=== PATIENT | female | born 1950 ===

== ENCOUNTER 2016-09-02 06:10 | Day surgery (SDC) | payer BC, OTHER ==
[2016-09-01 11:35] VITALS: BMI 24.0
[2016-09-02] MEDS ORDERED: Lactated Ringer's 1,000 ML IV ONE ×2 (07:10→10:30)
[2016-09-02] MEDS ORDERED: Bupivacaine 0.5% Inj(30mL) ONE (08:24)
[2016-09-02] MEDS ORDERED: Bacitracin Ointment 30 GM TUBE ONE (08:24)
[2016-09-02] MEDS ORDERED: MethylPREDNISolone Depo 40 mg/ml Inj ONE (08:24)
[2016-09-02] MEDS ORDERED: Lidocaine 1% Inj (20ml) ONE ×2 (08:24→14:36)
[2016-09-02] MEDS ORDERED: Rocuronium 10 mg/ml (5 ml) ONE (08:53)
[2016-09-02] MEDS ORDERED: Propofol 10 mg/ml Inj (20 ML) ONE (08:53)
[2016-09-02] MEDS ORDERED: Succinylcholine 200 mg/10 ml Inj IV ONE (08:54)
[2016-09-02] MEDS ORDERED: ePHEDrine 50 mg/ml Inj ONE (08:56)
[2016-09-02] MEDS ORDERED: Neostigmine Methylsulfate 2 MG/2 ML ML IV ONE (10:00)
[2016-09-02] MEDS ORDERED: HYDROmorphone 0.5 mg/0.5 ml ISec ONE ×3 (11:12→11:45)
[2016-09-02] MEDS ORDERED: HYDROmorphone 0.5 mg/0.5 ml ISec IVP PRN (11:19)
[2016-09-02] MEDS: HYDROmorphone 0.5 mg/0.5 ml ISec IVP PRN ×3 (11:37→12:45)
--- NOTE | 2016-09-02 13:53 | RAD ---
PROCEDURE: Left Wrist Radiographs. HISTORY: s/p orif left distal radius COMPARISON: None. FINDINGS: BONES: Status post ORIF distal radius. No preoperative films. The nature of the distal radial fracture is not fully evident from this examination alone. Gross anatomic alignment has been achieved. There is a pin traversing the distal radial ulnar articulation. JOINTS: Normal. No dislocation. SOFT TISSUES: Normal. OTHER FINDINGS: None. IMPRESSION: ORIF distal radial fracture.
[2016-09-02] MEDS ORDERED: Ropivacaine 0.5% 30ML IV ONE (14:36)
--- NOTE | 2016-09-02 15:26 | PCM.SURG1 ---
Surgeon's Initial Post Op Note - Surgeon's Notes Surgeon: Polly Lawn Mower Sharpener: YESI Kong Type of Anesthesia: General Endo Anesthesia Administered By: Dr grimes Pre-Operative Diagnosis: Dispalced/intrarticular distal radius fx/radioulnar dislocation/ carpal tunnel syndrome L wrist ( post traumatic0 Operative Findings: displaced intraarticular distal radius fx. radioulnar dislocation. post traumatic compression median nerve Left Post-Operative Diagnosis: as above. flexor tenosynovitis Operation Performed: ORIF intraarticular comminuted distal radius fx. ORIF radioulnar dislocation. release carpal tunnel. partial flexor tenosynovectomy. partial mediuan neurolysis. applx short arm splint Specimen/Specimens Removed: callous/bone/tenosynovium. epineurium Estimated Blood Loss: EBL {In ML}: 10 Blood Products Given: N/A Drains Used: No Drains Post-Op Condition: Good Date of Surgery/Procedure: 09/02/16 Time of Surgery/Procedure: 09:50 (time in room/anaesthesia indcution time 901)
--- NOTE | 2016-09-02 15:34 | PCM.ANESB4 ---
Infraclavicular Block - Femoral Nerve Block Date of Procedure: 09/02/16 Procedure Performed: Brachial Plexus at the Infraclavicular area Left - Procedure Infraclavicular Block: The procedure was explained to the patient that it is for the post-operative pain management. Consent was obtained after a thorough discussion with the patient regarding the benefits and possible complications of local anesthetic block of the brachial plexus at the infraclavicular area. T Time-out was held with the PACU nurse to confirm the correct surgery and the appropriate block. After applying oxygen by nasal cannula patient's head was gently rotated away from the operative ____left____ shoulder and the area medial to the coracoid process and inferior to the clavicle was carefully palpated. The ultrasound transducer was then applied to the skin in the transverse plane and the brachial plexus was visualized surrounding the axillary artery and deep to the pectoralis major and minor muscles. After thorough identification, this area was prepped with chloroprep and 2 % Lidocaine was injected subcutaneously for topical anesthesia. At this point, a #21 gauge Stimuplex 4-inch needle was inserted cephalad to the ultrasound transducer and inferior to the clavicle in-plane towards the posterior aspect of the axillary artery. Needle advancement was performed carefully under ultrasound visualization. After repeated negative aspiration, _ __3__cc of ___2__% Lidocaine was injected and this was followed with ___20___ cc of ___0.5____ % Ropivacaine . Under ultrasound guidance the local anesthetics were observed surrounding the cords of the brachial plexus. The needle was removed intact and sterile dressing was applied. The patient had stable vital signs, was conscious and in no apparent distress. The patient tolerated the infraclavicular block of the brachial plexus well with stable vital signs.
[2016-09-02 15:36] VITALS: RESP 18
--- NOTE | 2016-09-02 16:19 | RAD ---
PROCEDURE: Fluoroscopy over 1 hour. HISTORY: LEFT WRIST COMPARISON: None TECHNIQUE: Submitted images from the current procedure: 4.0. FINDINGS: Total fluoroscopic time (continuous mode) utilized during the procedure: 10.9 seconds. IMPRESSION: Fluoroscopic assistance provided for open reduction internal fixation distal radial fracture.
[2016-09-02 18:24] VITALS: BP 112/58; PULSE 77; TEMP 98.5; O2SAT 100
--- NOTE | 2016-09-03 06:57 | OP ---
PROCEDURE DATE: 09/02/2016 PREOPERATIVE DIAGNOSES: 1. Comminuted intraarticular fracture of the distal radius. 2. Radial ulnar dislocation. 3. Posttraumatic carpal tunnel syndrome, median nerve compression. POSTOPERATIVE DIAGNOSES: 1. Comminuted intraarticular distal radius fracture with volar lip fragment. 2. Open reduction internal fixation of the radioulnar dislocation. 3. Released transverse carpal ligament. 4. Partial median neurolysis. 5. Partial flexor tenosynovectomy. 6. Application of volar splint. 7. Positioning of fluoroscope, interpretation of video images. SURGEON: Eamon Matias MD WRIST LINER: Terri Valenzuela, Certified Registered Nursing Lockstitch Pocket Setter. ANESTHESIA: General endotracheal anesthesia, Dr. Zheng. COMPLICATIONS: No complications. DRAINS: No drains. OPERATIVE INDICATION: The patient is a 66-year-old woman who presents after a fall on an outstretche d extremity, presenting with a comminuted intraarticular distal radius fracture, radioulnar dislocati on. The pros, cons, risks and benefits of surgical approach were discussed. The possibility of mech anical failure, infection, thromboembolic disease, secondary or tertiary surgery is discussed. The p atient can no longer stand the discomfort. Informed consent is obtained in the presence of a [facility] competent bulb grader in the presence of her and daughter. Alternative procedures and mod alities of treatment were discussed, including benign neglect, casting, and pin fixation. The treatm ent course chosen is judged to be the most effective in terms of stability and early range of motion. The pros, cons, risks, and benefits of surgical approach were discussed. The possibility of mechan ical failure, infection, thromboembolic disease, secondary or tertiary surgery is discussed. The lef t upper extremity is the involved upper extremity. After having obtained informed consent, after hav ing identified side, site, and procedure and a critical pause/timeout, after the satisfactory inducti on of the anesthetic, the patient identified as the patient, in the supine position with all bony pro minences well padded, the left upper extremity is prepped and free draped in the usual fashion for up per extremity surgery. The tourniquet had been applied, but is not inflated. After exsanguinating t he limb using 6-inch Esmarch bandage, the tourniquet, which had been applied, is inflated to 250 mmHg . The operation is performed under eyeglass magnification. This having been accomplished, the incisi on, as described in the median palmar crease, deviating distally at the distal crease, deviating back proximally to the proximal crease, and in the interval between the palmaris longus and flexor carpi radialis. The skin incision is carried down through the skin and subcutaneous tissue. The operation was performed under 2.5 magnifying eyeglasses. The flap was elevated. The entire extent of the tra nsverse carpal ligament was identified. The transverse carpal ligament is divided. Again, the inter ever between the flexor carpi radialis and the palmaris longus is developed and the palmar aponeurosis is divided. The entire extent of the transverse carpal ligament is divided. There is compression o f the underlying median nerve. The wound is thoroughly irrigated. The tendons were reflected using the Ta retractors. The entire extent of the transverse carpal ligament is released. There i s found to be evidence of compression in the median nerve with evidence of florid tenosynovitis. A p artial flexion tenosynovectomy is accomplished, as well as a median epineurolysis. This having been accomplished, the fracture site is identified, is curetted with healing callus. The fracture was red uced with some traction, flexion, and some ulnar deviation. At this point in time, the radius plate is applied to the volar aspect of the wrist. Each sequential drill hole is drilled, sounded, a nd the appropriate sized screws are placed in the locking mode. Verification of position is offered on AP and lateral image intensification views. This having been accomplished, it is found to be acce ptable position of the plate and fixation of the radius fracture. There is found to be evidence of i nstability of the ulna, status post ulnar dislocation, and the injury. The ulna is reduced and held with a transfixing K-wire. The camera was placed in the ulnar aspect through the radial fragment. T his having been accomplished, verification is offered on AP and lateral image intensification views. The wrist capsule was repaired with FiberWire suture, nonabsorbable, and closure is in layers with i nterrupted Vicryl and cecelia and nylon, Wan Campa compression dressing, and volar splint is appli ed. Eamon Matias MD cc: [id number] TT: 09/02/2016 23:40:28 dn
--- NOTE | 2016-09-03 07:27 | CARD ---
APPROVED REPORT EKG Measurement Heart [id number] <Conclusion> Normal sinus rhythm Normal ECG
== END 2016-09-02 18:43 | disposition home or self-care (01) ==
LOC: H.OPSURG 06:10
PROVIDERS: ATTEND Orthopaedic Surgery
DX: S52.321A Displaced transverse fracture of shaft of right radius, initial encounter for closed fracture (principal); W19.XXXA Unspecified fall, initial encounter; G56.00 Carpal tunnel syndrome, unspecified upper limb; S63.075A Dislocation of distal end of left ulna, initial encounter
CPT/HCPCS: 25115; 25608; 64721; 73100; 88304; 88307; 93005; C1713; J0330; J1170; J2001; J2405; J2704; J2710; J3010; J7030; J7120

== ENCOUNTER 2017-06-20 06:03 | Day surgery (SDC) | payer BC ==
[2017-06-20 06:14] VITALS: BMI 26.6
[2017-06-20 06:33] VITALS: RESP 20
[2017-06-20] MEDS ORDERED: Lactated Ringer's 1,000 ML IV ONE ×2 (06:54→10:05)
[2017-06-20] MEDS ORDERED: Propofol 10 mg/ml Inj (20 ML) ONE (07:30)
[2017-06-20] MEDS ORDERED: Lidocaine 1% 5ml Abboject IV ONE (07:30)
[2017-06-20] MEDS ORDERED: Midazolam 2 MG/2 ML VIAL ONE (07:30)
--- NOTE | 2017-06-20 07:37 | CP.SDSHP ---
Same Day Surgery H & P - History Proposed Procedure: Left wrist hardware removal Pre-Op Diagnosis: L wrist distal radius fracture, radio-ulnar dislocation s/p ORIF - Previous Medical/Surgical History Pain: 2.Mild Pain Previous Surgical History: L wrist ORF, uterus prolapse - Allergies Allergies: Allergies Penicillins Allergy (Verified 09/01/16 11:35) RASH aspirin Adverse Reaction (Verified 09/01/16 11:35) RASH - Current Medications Current Medications: None - Physical Exam General Appearance: No acute distress Vital Signs: Vital Signs 06/20/17 06/20/17 06:31 06:34 Temperature 98.1 F Pulse Rate 80 80 Respiratory 20 Rate Blood Pressure 149/76 O2 Sat by Pulse 100 Oximetry Mental Status: Alert & Oriented x3 Neuro: WNL Heart: WNL Lungs: WNL GI: WNL - {Optional Preform as Required} Abdomen: WNL Integument: WNL Ortho: Other (L wrist: old surgical incision well healed, no tenderness, gross NVI distally, FROM) ENT: WNL - Impression Impression: Patient is a 67 y/o female who presents for removal of L wrist hardware. Pt. Evaluated Today:Candidate for Anesthesia & Procedure: Yes (Risks/kallie explained to pt in detailand she agrees to proceed) - Date & Time Date: 06/20/17 Time: 07:43 Short Stay Discharge - Short Stay Discharge Admitting Diagnosis/Reason for Visit: M71.032 Disposition: HOME/ ROUTINE Referrals: Eamon Matias III, MD [Primary Care Provider] -
[2017-06-20] MEDS ORDERED: ceFAZolin IV 2 gm in Dextrose 0 GM/0 ML BAG IVPB ONE (07:43)
[2017-06-20] MEDS ORDERED: MethylPREDNISolone Depo 40 mg/ml Inj ONE (07:43)
[2017-06-20] MEDS ORDERED: Bupivacaine 0.5% Inj(30mL) ONE (07:43)
[2017-06-20] MEDS ORDERED: Bacitracin Ointment 30 GM TUBE ONE (07:44)
[2017-06-20] MEDS ORDERED: Clindamycin 600mg/50ml NS 600 MG/50 ML BAG IVPB ONE (07:45)
[2017-06-20] MEDS ORDERED: Lidocaine 4% (Laryng-O-Jet) Kit MM ONE (07:48)
[2017-06-20] MEDS ORDERED: Succinylcholine 200 mg/10 ml Inj IV ONE (07:48)
[2017-06-20] MEDS ORDERED: Phenylephrine 10 mg/ml Inj ONE (08:08)
[2017-06-20] MEDS ORDERED: Morphine 4 MG/ML VIAL IVP PRN (09:09)
[2017-06-20] MEDS ORDERED: Lactated Ringer's 1,000 ML IV SCH (09:15)
[2017-06-20] MEDS ORDERED: Oxycodone/Acetaminophen 5/325 mg Tab PO PRN (09:37)
[2017-06-20 10:33] VITALS: BP 127/82; PULSE 81; TEMP 98.3; O2SAT 100
--- NOTE | 2017-06-20 10:52 | RAD ---
PROCEDURE: Left Wrist Radiographs. HISTORY: S/P removal of hardware COMPARISON: Left wrist radiographs 09/02/2016. FINDINGS: BONES: Is again seen the status post ORIF with compression plate and screws reducing a fracture of the distal left radius once again. The fracture is not identified suggesting late stage of healing or healed fracture. Prior orthopedic pin is been removed transfixing the radius and ulna with a nonspecific lucency identified at the radial side of the distal left ulna. Skin cecelia are identified medial to the ulna. JOINTS: Normal. No dislocation. SOFT TISSUES: Normal. OTHER FINDINGS: None. IMPRESSION: Status post removal of orthopedic pin transfixing the distal radius and ulna with radial compression plate and screws unchanged in position. Bony lucency is seen at the site of the location of the pin at the level of the lateral ulna. Radial compression plate unchanged in position and appearance.
--- NOTE | 2017-06-20 14:04 | PCM.SURG1 ---
Surgeon's Initial Post Op Note - Surgeon's Notes Surgeon: Polly Drop Wire Aliner: YESI Peck Type of Anesthesia: General Endo Anesthesia Administered By: Dr Gutierrez Pre-Operative Diagnosis: painful hardware (deep) R distal ulne. cyst distal ulna. s/p[ healed distal radius fx ( s/p radioulnar subluxation s. Operative Findings: as above Post-Operative Diagnosis: as above Operation Performed: Excision cyst distal ulna. Removal hardware deep. manipulation of R wrist. posiitoning of fluor/ibnterpretation of video images. intrarticular injection Specimen/Specimens Removed: ganglion cyst distal ulna. fixation duistal radioulnar joint Estimated Blood Loss: EBL {In ML}: 5 Blood Products Given: N/A Drains Used: No Drains Post-Op Condition: Good Date of Surgery/Procedure: 06/20/17 Time of Surgery/Procedure: 08:35 (time in room/anaesthesia indcution time- 7:45)
--- NOTE | 2017-06-22 19:52 | OP ---
PROCEDURE DATE: 06/20/2017 PREOPERATIVE DIAGNOSES 1. Painful hardware, deep (right distal ulna). 2. Soft tissues cyst/bursa superficial to the lateral aspect of the distal ulna. 3. Status post healed distal radius fracture (distal radius fracture and radial ulnar subluxation). POSTOPERATIVE DIAGNOSES: 1. Painful hardware, deep (right distal ulna). 2. Soft tissues cyst/bursa superficial to the lateral aspect of the distal ulna. 3. Status post healed distal radius fracture (distal radius fracture and radial ulnar subluxation). OPERATIVE FINDINGS: As above. Healed distal radial fracture with improved radial ulnar subluxation. OPERATION PERFORMED 1. Excision cyst distal ulna. 2. Removal hardware, deep. 3. Manipulation of the wrist under fluoroscopy. 4. Positioning of fluoroscope, interpretation of video images. 5. Intra-articular injection. SPECIMENS REMOVED 1. Ganglion cyst, distal ulna. 2. Transfixing pins, distal radius ulna. BLOOD LOSS: 5 mL. BLOOD PRODUCTS: None. DRAINS: None. POSTOPERATIVE CONDITION: Stable. TIME OF SURGERY: Incision time 08:35, time in the room 07:45. OPERATIVE INDICATIONS: Solange Singer is a 67-year-old woman who had sustained a distal radial fracture and subluxation of the distal radial ulnar joint. The patient underwent open reduction and internal fixation with transfixion the joint with a K-wire. The K-wire has migrated and the patient has developed a ganglion cyst superficial to the ulna. The pros, cons, risks, and benefits of surgical approach were discussed. The possibility of mechanical failure, infection, thromboembolic disease, secondary or tertiary surgery was discussed. OPERATIVE PROCEDURE: After having obtained informed consent in the above fashion, after having identified side, site and procedure and critical pause/time-out, after the satisfactory induction of the anesthetic, the patient identified as Solange Singer in the supine position with all bony prominences well padded, the right upper extremity was prepped and free draped in usual fashion for upper extremity surgery. The tourniquet had been applied but was not yet inflated. After having obtained informed consent in the above fashion, after thoroughly discussing the possibility of mechanical failure, infection, nerve injury, wrist stiffness, thromboembolic disease, recurrent instability, the patient identified as Solange Singer in the supine position. All bony prominences were well padded. The upper extremity having been prepped and draped in usual fashion for upper extremity surgery. The upper extremity was exsanguinated using a 4-inch Esmarch bandage, tourniquet which had been applied was inflated to 250 mmHg. Under the surgeon's direction, the fluoroscope was positioned, video images were generated, therapeutic decisions were made therefrom. There was found to be evidence of a healed distal radius fracture with plate in acceptable position. The hardware was identified. At this point in time, an incision was described approximately 1.5 cm and extended superficial to the K-wire. Again, there was aforementioned cystic out patching in the dorsolateral aspect of the ulna. Skin incision was carried down through the skin and subcutaneous tissue. Hemostasis controlled with electrocautery. The operation was performed under 2.0 image intensification views. This having been accomplished, stay sutures were placed anteriorly and posteriorly. The cyst was identified and great care was taken to avoid injury to the dorsal branch of the ulnar cutaneous nerve. The cyst was identified, there was found to be evidence of caseous material. The cyst was excised and sent for biopsy. This having been accomplished, the transition K-wire was identified and it was very deep and it was localized with image intensification. The K-wire was removed and the wound was thoroughly irrigated. Closures in layers with interrupted Vicryl and nylon. A compression dressing was applied. Intra-articular injection was offered and Wan Lokesh compression dressing was applied. Eamon Matias MD
== END 2017-06-20 11:20 | disposition home or self-care (01) ==
LOC: H.OPSURG 06:03
PROVIDERS: ATTEND Orthopaedic Surgery
DX: T84.84XA Pain due to internal orthopedic prosthetic devices, implants and grafts, initial encounter (principal); M71.032 Abscess of bursa, left wrist; Y83.1 Surgical operation with implant of artificial internal device as the cause of abnormal reaction of the patient, or of later complication, without mention of misadventure at the time of the procedure; Z88.0 Allergy status to penicillin
CPT/HCPCS: 20680; 73110; 88304; J0330; J2250; J2270; J2370; J2704; J2765; J3010; J7030; J7120